=== PATIENT | male | born 1955 | race Caucasian/White ===

== ENCOUNTER 2022-06-21 12:23 | Outpatient (CLI) | payer MEDICAID, SELFPAY ==
--- NOTE | 2022-06-21 12:43 | XRR_ITS ---
PROCEDURE INFORMATION: Exam: XR Chest Exam date and time: 06/21/2022 12:49 PM Age: 66 years old Clinical indication: Patient HX: Cough for 3 months, SOB, HX covid 3-4 months ago TECHNIQUE: Imaging protocol: Radiologic exam of the chest. Views: 2 views. COMPARISON: No relevant prior studies available. FINDINGS: Lungs: Unremarkable. No consolidation. Pleural spaces: Unremarkable. No pleural effusion. No pneumothorax. Heart/Mediastinum: Unremarkable. No cardiomegaly. Bones/joints: Unremarkable. XR/XR chest 2V* [id number] IMPRESSION: No acute findings.
== END 2022-06-21 12:24 | disposition home or self-care (01) ==
LOC: RAD 12:28
PROVIDERS: PCP Nurse Practitioner Family; Visit Provider Family Medicine
DX: R05.8 Other specified cough (principal)
CPT/HCPCS: 71046

== ENCOUNTER 2022-08-30 10:07 | Outpatient (CLI) | payer MEDICARE, MEDICAID, SELFPAY | END 2022-08-30 10:08 | disposition home or self-care (01) | LOC: RT 10:12 | PROVIDERS: PCP Nurse Practitioner Family; Visit Provider Family Medicine | DX: R06.09 Other forms of dyspnea (principal); R05.9 Cough, unspecified | CPT/HCPCS: 94060; J7613 ==

== ENCOUNTER 2023-05-03 10:52 | Outpatient (CLI) | payer MEDICARE, MEDICAID, SELFPAY ==
--- NOTE | 2023-05-03 11:04 | USCV_ITS ---
Frankie Fuchs Age: 67 Gender: M : 1955 Exam Date: 05/03/2023 11:15 Ordering Phys: Ti Prieto NP Technologist: CT Exam Location: [facility] [place]_ Indication: BP: 130 / 75 HR: 62 Rhythm: Sinus Technical Quality: Adequate MEASUREMENTS (Male / Female) Normal Values 2D ECHO LV Chamber Size 4.4 cm RV Chamber Size 3.4 cm LVOT Diameter 2.3 cm LV Ejection Fraction MOD 2C 57.6 % LV Ejection Fraction 2C AL 58.4 % LA Diameter 4.0 cm LA Width 3.8 cm LA Height 5.4 cm RA Width 4.1 cm RA Height 5.1 cm Aorta at Sinotubular Diameter 3.2 cm IVC Diameter 1.8 cm M-MODE Aortic Annulus Diameter 4.2 cm LA Ao Ratio MM 1.0 MV E Point Septal Separation 0.9 cm DOPPLER AV Peak Velocity 142.0 cm/s LVOT Peak Velocity 106.0 cm/s AV Area Cont Eq vti 3.3 cm squared AV Area Cont Eq pk 3.0 cm squared MV Area PHT 3.6 cm squared Mitral E to A Ratio 1.2 MV E' Velocity 45.0 cm/s Mitral E to MV E' Ratio 7.2 Mitral E to LV E' Lateral Ratio 6.3 Mitral E to LV E' Septal Ratio 8.3 TR Peak Velocity 108.3 cm/s TR Peak Gradient 4.7 mmHg TV Peak E Velocity 67.0 cm/s Right Atrial Pressure 3.0 mmHg Pulmonary Artery Systolic Pressu 7.7 mmHg PV Peak Velocity 101.0 cm/s FINDINGS Left Ventricle Normal left ventricular size and systolic function, EF 60 %. No regional wall motion abnormalities. Right Ventricle The right ventricle is normal in size and function. Right Atrium The right atrium is normal in size. Left Atrium The left atrium is normal in size. Mitral Valve No gross abnormalities noted Aortic Valve Thickened aortic valve. Trace aortic valve regurgitation. Tricuspid Valve No gross abnormalities noted Pulmonic Valve Pulmonic valve not well visualized. Pericardium Normal pericardium without effusion. Aorta Normal aortic annulus size. IVC Normal inferior vena cava. CONCLUSIONS Normal left ventricular size and systolic function, EF 60 %. No regional wall motion abnormalities. Thickened aortic valve. Trace aortic valve regurgitation. There is no pericardial effusion. There are no intracardiac masses. No similar previous studies are available for comparison Dr Saima Miranda MD [facility] (Electronically Signed) Final Date: 05 May 2023 11:43 S
== END 2023-05-03 10:53 | disposition home or self-care (01) ==
LOC: RAD 10:53
PROVIDERS: PCP Nurse Practitioner Family; Visit Provider Nurse Practitioner Family
DX: R06.00 Dyspnea, unspecified (principal); I35.8 Other nonrheumatic aortic valve disorders
CPT/HCPCS: 93306

== ENCOUNTER → 2023-05-30 10:14 | Outpatient (BNVA) | payer MEDICARE, MEDICAID, SELFPAY | PROVIDERS: PCP Nurse Practitioner Family; Referring Provider Nurse Practitioner Family; Visit Provider Internal Medicine Cardiovascular Disease | DX: J44.9 Chronic obstructive pulmonary disease, unspecified (principal); E78.5 Hyperlipidemia, unspecified; I10 Essential (primary) hypertension; Z87.891 Personal history of nicotine dependence | CPT/HCPCS: 99203 ==

== ENCOUNTER 2023-08-17 09:05 | Outpatient (CLI) | payer MEDICARE, MEDICAID, SELFPAY ==
--- NOTE | 2023-08-17 09:09 | CT_ITS ---
WS: [id number] LDCT LUNG CANCER SCREENING HISTORY: HX OF TOBACCO USE TECHNIQUE: Axial imaging performed from the apices to 1 cm below the costophrenic angles. Coronal and sagittal reformats are submitted with axial MIP series. All CT scans at [facility] use at least one of these dose optimization techniques: automated exposure control; mA and/or kV adjustment per patient size (includes targeted exams where dose is matched to clinical indication); or iterativ e reconstruction. DLP: 140.31 mGy.cm DIvol: Mean CTDIvol: 3.10 (mGy) COMPARISON: None available. Diagnostic quality: Satisfactory Lungs: Mild pulmonary hyperexpansion. Focal scar abuts the RIGHT mediastinal fat in the middle lobe. No mass or nodules. Micronodule, image 39 series 4. Benign granuloma posterior LEFT upper lobe. Heart: Normal size heart with no pericardial effusion.. Other findings: Mild atherosclerosis aorta. Normal size pulmonary artery. No adenopathy. Small hiatal hernia. No adrenal mass. IMPRESSION: CT/CT lung screening [id number] LUNG-RADS: 2-Benign Appearance or Behavior FOLLOW UP: 12 Month: Continue annual screening with LDCT OTHER FINDINGS (S MODIFIER): None.
== END 2023-08-17 09:06 | disposition home or self-care (01) ==
LOC: RAD 09:05
PROVIDERS: PCP Nurse Practitioner Family; Visit Provider Family Medicine
DX: Z12.2 Encounter for screening for malignant neoplasm of respiratory organs (principal); Z87.891 Personal history of nicotine dependence
CPT/HCPCS: 71271

== ENCOUNTER 2023-12-06 09:22 | Outpatient (RCR) | payer MEDICARE, MEDICAID, SELFPAY | END 2023-12-15 23:59 | disposition home or self-care (01) | LOC: SPT 09:22 | PROVIDERS: PCP Family Medicine; Visit Provider Family Medicine | DX: M54.41 Lumbago with sciatica, right side (principal) | CPT/HCPCS: 97161 ==

== ENCOUNTER 2023-12-16 06:00 | Outpatient (RCR) | payer MEDICARE, MEDICAID, SELFPAY | END 2023-12-28 23:59 | disposition home or self-care (01) | LOC: SPT 06:00 | PROVIDERS: PCP Family Medicine; Visit Provider Family Medicine | DX: M54.41 Lumbago with sciatica, right side (principal) | CPT/HCPCS: 97110 ==

== ENCOUNTER 2023-12-27 11:27 | Outpatient (CLI) | payer MEDICARE, MEDICAID, SELFPAY ==
--- NOTE | 2023-12-27 11:32 | MR_ITS ---
WS: [id number] MRI LUMBAR SPINE NONCONTRAST HISTORY: LUMBAGO W/SCIATICA, RIGHT SIDE COMPARISON: None available. TECHNIQUE: Sagittal and axial multisequence imaging is submitted. Mild straightening of the normal lumbar lordosis. Disc spaces are mildly desiccated. No lumbar spine fracture. Conus terminates normally at L2. L1-L2: Normal. L2-L3: Very minimal disc bulging and facet arthritis. No stenosis. L3-L4: Annular disc bulging with moderate ligamentum flavum and facet arthritis. Fluid in the facet j oints. Encroachment upon the ventral thecal sac and subarticular recesses. Disc osteophyte contact on the exiting RIGHT L3 nerve root. Mild central, subarticular recess and RIGHT foraminal stenosis. L4-L5: Moderate annular disc bulging. There is a moderate size RIGHT subarticular disc extrusion that extends below the disc level measuring 7 x 12 mm. There is contact on the RIGHT lateral thecal sac a nd displacement of the nerve roots. Contact on the traversing RIGHT L5 nerve root. Otherwise mild oxana tral and LEFT subarticular recess and bilateral mild foraminal stenosis. L5-S1: Mild asymmetric disc bulging to the LEFT. Broad-based LEFT foraminal disc protrusion with pamella lar fissure. Very slight contact on the LEFT S1 nerve root. Mild bilateral foraminal stenosis, LEFT g reater than RIGHT. Infrarenal abdominal aortic aneurysm 3.3 cm. Exophytic 1.9 cm cyst from the medial LEFT kidney. MR/MR lumbar spine wo con* [id number] IMPRESSION: 1. Moderate size RIGHT subarticular disc extrusion at L4-5 measuring 7 x 12 mm contacting the RIGHT lateral thecal sac and displacing the nerve roots. 2. At L4-5 there is mild central and LEFT subarticular recess and mild foramin al stenosis also. 3. Asymmetric disc bulging at L5-S1. Broad-based LEFT foraminal disc protrusio n with annular fissure. Minimal contact on the LEFT S1 nerve root. Mild bilater al foraminal stenosis, LEFT greater than RIGHT. 4. Mild central, subarticular recess and RIGHT foraminal stenosis at L3-4. 5. Small abdominal aortic aneurysm 3.3 cm.
== END 2023-12-27 11:28 | disposition home or self-care (01) ==
PROVIDERS: PCP Family Medicine; Visit Provider Family Medicine
DX: M54.41 Lumbago with sciatica, right side (principal); M51.36 Other intervertebral disc degeneration, lumbar region; M48.061 Spinal stenosis, lumbar region without neurogenic claudication; M51.26 Other intervertebral disc displacement, lumbar region; M51.37 Other intervertebral disc degeneration, lumbosacral region; M48.07 Spinal stenosis, lumbosacral region; M51.27 Other intervertebral disc displacement, lumbosacral region; Q05.7 Lumbar spina bifida without hydrocephalus; I71.40 Abdominal aortic aneurysm, without rupture, unspecified; N28.1 Cyst of kidney, acquired
CPT/HCPCS: 72148

== ENCOUNTER → 2024-01-11 10:33 | Outpatient (BNVA) | payer MEDICARE, MEDICAID, SELFPAY | PROVIDERS: PCP Family Medicine; Visit Provider Orthopaedic Surgery | DX: M54.9 Dorsalgia, unspecified (principal) | CPT/HCPCS: 72110; 99204 ==

== ENCOUNTER → 2024-02-22 08:07 | Outpatient (BNVA) | payer MEDICARE, MEDICAID, SELFPAY | PROVIDERS: PCP Family Medicine; Visit Provider Orthopaedic Surgery | DX: M48.062 Spinal stenosis, lumbar region with neurogenic claudication (principal) | CPT/HCPCS: 72110; 99213 ==

== ENCOUNTER → 2024-05-30 12:48 | Outpatient (BNVA) | payer MEDICARE, MEDICAID, SELFPAY | PROVIDERS: PCP Family Medicine; Visit Provider Internal Medicine Cardiovascular Disease | DX: I10 Essential (primary) hypertension (principal); I35.9 Nonrheumatic aortic valve disorder, unspecified; J44.9 Chronic obstructive pulmonary disease, unspecified; R60.0 Localized edema | CPT/HCPCS: 99214 ==

== ENCOUNTER 2024-11-14 09:04 | Outpatient (CLI) | payer MEDICARE, MEDICAID, SELFPAY ==
--- NOTE | 2024-11-14 09:12 | CT_ITS ---
WS: [id number] LDCT LUNG CANCER SCREENING TECHNIQUE: Noncontrast CT of the chest with coronal and sagittal reformatted images. CLINICAL INFORMATION: HX OF TOBACCO USE COMPARISON: 2023 DLP: 143.89 mGy.cm DIvol: Mean CTDIvol: 3.00 (mGy) All CT scans at [facility] use at least one of these dose optimization techniques: automated exposure control; mA and/or kV adjustment per patient size (includes targeted exams where dose is matched to clinical indication); or iterative reconstruction. FINDINGS: Some images degraded due to respiratory motion artifact. No new suspicious parenchymal abnormalities. Stable scar/fibrosis in the RIGHT middle lobe. Calcified granuloma LEFT upper lobe. Slight fibrosis in the lung apices. A few tiny scattered micronodules. Small RIGHT perifissural nodule. Adrenal glands are normal. Small esophageal hernia. Aortic calcification. Coronary calcification. Normal caliber thoracic aorta. No mediastinal or hilar lymphadenopathy. No axillary lymphadenopathy. Mild thoracic curve and kyphosis. Moderate to advanced chronic emphysematous changes. CT/CT lung screening [id number] IMPRESSION: LUNG-RADS: 2-Benign Appearance or Behavior FOLLOW UP: 12 Month: Continue annual screening with LDCT
== END 2024-11-14 09:05 | disposition home or self-care (01) ==
PROVIDERS: PCP Family Medicine; Visit Provider Family Medicine
DX: Z12.2 Encounter for screening for malignant neoplasm of respiratory organs (principal); Z87.891 Personal history of nicotine dependence; J98.4 Other disorders of lung; J84.10 Pulmonary fibrosis, unspecified; R91.8 Other nonspecific abnormal finding of lung field; K44.9 Diaphragmatic hernia without obstruction or gangrene; I70.0 Atherosclerosis of aorta; I25.10 Atherosclerotic heart disease of native coronary artery without angina pectoris; M43.8X4 Other specified deforming dorsopathies, thoracic region; M40.294 Other kyphosis, thoracic region; J43.8 Other emphysema
CPT/HCPCS: 71271